=== PATIENT | male | born 1995 | race American Indian/Alaskan Native ===

== ENCOUNTER 2019-11-02 19:46 | Emergency (ER) | payer OTHER ==
[2019-11-02] MEDS ORDERED: IBUPROFEN 600 MG TAB PO ONE (20:06)
--- NOTE | 2019-11-02 20:42 | Emergency Department Report ---
ED Lower Extremity HPI - General Chief Complaint: Extremity Injury, Lower Stated Complaint: RT ANKLE PAIN Time Seen by Provider: 11/02/19 20:00 Source: patient Mode of arrival: Wheelchair Limitations: No Limitations - History of Present Illness Initial Comments: 23-year-old -[place] male presents to the emergency room for pain to his right ankle. Patient states he was chasing a suspect when he believes his ankle rolled. Patient reports a burning and states that he thought his toes then back. Patient reports this happened approximately 1:30 PM today. Patient reports that the nurse had wrapped it with an Brian bandage. Patient has not taken anything for pain. MD Complaint: ankle injury -: This afternoon Time: 13:30 Injury: Ankle: Right Type of Injury: inversion, hyperflexion (of toe) Place: work Severity: severe Severity scale (0 -10): 8 Context: running Treatments Prior to Arrival: bandage - Related Data Allergies Allergy/AdvReac Type Severity Reaction Status Date / Time peanut Allergy Hives Verified 11/02/19 19:48 Penicillins Allergy Hives Verified 11/02/19 19:48 shellfish derived Allergy Hives Verified 11/02/19 19:48 ED Review of Systems ROS: Stated complaint: RT ANKLE PAIN Other details as noted in HPI Comment: All other systems reviewed and negative ED Physical Exam - General Limitations: No Limitations General appearance: alert, in no apparent distress - Head Head exam: Present: atraumatic, normocephalic - Eye Eye exam: Present: normal appearance - ENT ENT exam: Present: mucous membranes moist - Expanded Lower Extremity Exam Right Hip exam: Present: normal inspection, full ROM Upper Leg exam: Present: normal inspection, full ROM Knee exam: Present: normal inspection, full ROM Lower Leg exam: Present: normal inspection, full ROM Ankle exam: Present: full ROM, tenderness. Absent: swelling Foot/Toe exam: Present: full ROM, tenderness (arch hindfoot). Absent: swelling, abrasion, laceration, crepidus, erythema Neuro vascular tendon exam: Present: no vascular compromise ED Lower Extremity MDM - Radiology Data Radiology results: report reviewed Patient: SANJEEV JUNIOR MR#: [id number] : 1995 Acct:[id number] Age/Sex: 23 / M ADM Date: 11/02/19 Loc: ED Attending Dr: Ordering Physician: LUCAS OCHOA Date of Service: 11/02/19 Procedure(s): XR ankle 3+V RT Accession Number(s): [id number] cc: LUCAS OCHOA Fluoro Time In Minutes: RIGHT ANKLE 3 VIEWS INDICATION / CLINICAL INFORMATION: right ankle injury. COMPARISON: None available. FINDINGS: BONES / JOINT(S): No acute fracture or subluxation. No significant arthritis. SOFT TISSUES: No significant abnormality. ADDITIONAL FINDINGS: None. Signer Name: Wes Benitez MD Signed: 11/02/2019 8:51 PM Workstation Name: [id number] Transcribed By: ES Dictated By: Wes Benitez MD Electronically Authenticated By: Wes Benitez MD Signed Date/Time: 11/02/192050 DD/ 48 TD/TT: Critical care attestation.: If time is entered above; I have spent that time in minutes in the direct care of this critically ill patient, excluding procedure time. ED Disposition Clinical Impression: Left ankle strain, Strain of foot, right Disposition: DC-01 TO HOME OR SELFCARE Is pt being admited?: No Does the pt Need Aspirin: No Condition: Stable Instructions: Muscle Strain (ED) Additional Instructions: X-ray is negative for any acute findings. It appears that you have a ankle strain versus a sprain. I recommend for you to use Brian bandage take ibuprofen or Tylenol for pain management. Apply ice and elevate and follow up with her primary care provider. Referrals: MYRANDA ANTON MD [Staff Physician] - 3-5 Days Forms: Work/School Release Form(ED)
[2019-11-02 20:46] VITALS: BP 129/67
--- NOTE | 2019-11-02 20:55 | XRay Report ---
RIGHT ANKLE 3 VIEWS INDICATION / CLINICAL INFORMATION: right ankle injury. COMPARISON: None available. FINDINGS: BONES / JOINT(S): No acute fracture or subluxation. No significant arthritis. SOFT TISSUES: No significant abnormality. ADDITIONAL FINDINGS: None. Signer Name: Wes Benitez MD Signed: 11/02/2019 8:51 PM Workstation Name: [id number]
== END 2019-11-02 21:15 | disposition home or self-care (01) ==
LOC: ED 19:46
DX: S96.911A Strain of unspecified muscle and tendon at ankle and foot level, right foot, initial encounter (principal); S96.912A Strain of unspecified muscle and tendon at ankle and foot level, left foot, initial encounter; X50.9XXA Other and unspecified overexertion or strenuous movements or postures, initial encounter; Y93.89 Activity, other specified; Y92.69 Other specified industrial and construction area as the place of occurrence of the external cause; Y99.8 Other external cause status